=== PATIENT | female | born 1990 | race Caucasian/White ===

== ENCOUNTER 2017-08-06 02:11 | Emergency (ER) | payer MEDICAID ==
[~2017-08-06] VITALS: Ht 160 cm; Wt 61.2 kg
[2017-08-06 02:11] VITALS: BP_SYST 127
--- NOTE | 2017-08-06 02:11 | NUR ---
Patient to ER bed 8 to gown for evaluation. Side rails up.
--- NOTE | 2017-08-06 02:15 | NUR ---
Pt is alert and oriented x4. Pt C/O right lower tooth pain. Pain stated as 6/10. No signs of SOB or acute distress noted. Denies any other discomfort at this time. Will continue to monitor.
--- NOTE | 2017-08-06 02:25 | NUR ---
ER MD ORTIZ AT BEDSIDE EXAMINING PATIENT.
[2017-08-06] MEDS: AMOXICILLIN 500 MG CAPSULE PO ONE (02:58)
[2017-08-06 03:00] VITALS: BP_SYST 127
--- NOTE | 2017-08-06 03:00 | NUR ---
Patient given written and verbal discharge instructions and verbalizes understanding. ER MD ORTIZ discussed with patient the results and treatment provided. Patient in stable condition. ID arm band removed. Rx of Amoxicillin and Tramadol Hydrochloride given. Patient educated on pain management and to follow up with PMD. Pain Scale 2/10. Opportunity for questions provided and answered.
== END 2017-08-06 03:00 | disposition home or self-care (01) ==
LOC: SED 02:11
DX: K01.1 Impacted teeth (principal); K04.7 Periapical abscess without sinus
CPT/HCPCS: 99283

== ENCOUNTER 2018-06-24 01:14 | Emergency (ER) | payer MEDICAID ==
[~2018-06-24] VITALS: Ht 157.5 cm; Wt 63.5 kg
[2018-06-24 01:35] VITALS: BP_SYST 147
--- NOTE | 2018-06-24 02:15 | NUR ---
PT CALLED IN, NO ANSWER
--- NOTE | 2018-06-24 02:29 | NUR ---
PT AMBULATORY TO BED 4 FOR EVALUATION
--- NOTE | 2018-06-24 03:14 | NUR ---
Pt complains of feeling nauseous for the past two days. Per pt, nausea worsened in the past two hours. Pt states she "burps up stomach acid and sometimes pink things." Pt also complains of breast pain for the last few months. Pt denies fever. No other injuries/complaints per patient or noted.
== END 2018-06-24 04:55 | disposition left against medical advice (07) ==
LOC: SED 01:14
DX: R11.10 Vomiting, unspecified (principal); Z53.20 Procedure and treatment not carried out because of patient's decision for unspecified reasons
CPT/HCPCS: 81025; 99283

== ENCOUNTER 2020-11-23 23:19 | Emergency (ER) | payer MEDICAID ==
[~2020-11-23] VITALS: Ht 157.5 cm; Wt 59.0 kg
[2020-11-23 23:30] VITALS: BP_SYST 124
[2020-11-24] MEDS ORDERED: cefTRIAXone 1 GM in D5W 50 ML IV ONE (01:15)
[2020-11-24] MEDS ORDERED: NACL 0.9% 1,000 ML IV ONE (01:15)
[2020-11-24] MEDS ORDERED: ACETAMINOPHEN I.V. 1000 MG 100 ML IV ONE (01:15)
[2020-11-24] MEDS ORDERED: cefTRIAXone 1 GM VIAL ONE (01:57)
[2020-11-24 02:19] LABS: WHITE BLOOD COUNT (AUTO) 9.2 K/uL (4.8-10.8)
[2020-11-24 02:24] LABS: BASOPHILS % (AUTO) 0.4 % (0.0-2.0); EOSINOPHILS # (AUTO) 0.3 K/uL (0.0-0.4); EOSINOPHILS % (AUTO) 2.8 % (0.0-4.0); LYMPHOCYTES # (AUTO) 2.4 K/uL (1.0-5.5); LYMPHOCYTES % (AUTO) 26.3 % (20.5-51.5); MEAN CORPUSCULAR HEMOGLOBIN 30 pg (27-31); MEAN CORPUSCULAR HGB CONC 33 % (32-36); MEAN CORPUSCULAR VOLUME 90 fL (79.0-98.0); MONOCYTES # (AUTO) 0.8 K/uL (0.0-1.0); MONOCYTES % (AUTO) 8.2 % (1.7-9.3); NEUTROPHILS # (AUTO) 5.8 K/uL (1.8-7.7); NEUTROPHILS % (AUTO) 62.3 % (40.0-70.0); PLATELET COUNT (AUTO) 312 K/uL (130-430); RED BLOOD CELL COUNT(AUTO) 4.32 MIL/uL (4.2-6.2); RED CELL DISTRIBUTION WIDTH 13.6 % (9.0-15.0)
[2020-11-24] MEDS ORDERED: AMOX500C2 PO (02:36)
[2020-11-24] MEDS ORDERED: BENZ1LOZ58 PO (02:37)
[2020-11-24] MEDS ORDERED: ACET-73 PO (02:37)
[2020-11-24 03:07] VITALS: BP_SYST 127
== END 2020-11-24 03:07 | disposition home or self-care (01) ==
LOC: SED 23:19
DX: J02.9 Acute pharyngitis, unspecified (principal); Z79.899 Other long term (current) drug therapy; Z20.822 Contact with and (suspected) exposure to COVID-19
CPT/HCPCS: 36415; 85025; 86403; 87040; 87081; 87426; 96365; 99284; J0696; J7030; J0131

== ENCOUNTER 2020-12-06 10:50 | Emergency (ER) | payer MEDICAID, SELFPAY ==
[~2020-12-06] VITALS: Ht 157.5 cm; Wt 63.5 kg
[2020-12-06 10:50] VITALS: BP_SYST 152
[~2020-12-06 10:50] MED LIST: ACET-73 PO; AMOX500C2 PO; BENZ1LOZ58 PO
[2020-12-06] MEDS: KETOROLAC TROMETHAMINE 60 MG/2 ML VIAL IM ONE (11:17)
[2020-12-06] MEDS ORDERED: VAL2 PO (11:52)
[2020-12-06] MEDS ORDERED: NAPR-688 PO (11:52)
[2020-12-06 12:02] VITALS: BP_SYST 152
== END 2020-12-06 12:02 | disposition home or self-care (01) ==
LOC: SED 10:50
DX: R07.9 Chest pain, unspecified (principal); R06.02 Shortness of breath; Z79.899 Other long term (current) drug therapy
CPT/HCPCS: 71045; 93005; 96372; 99283; J1885